=== PATIENT | male | born 1980 | race Caucasian/White ===

== ENCOUNTER 2025-07-12 03:20 | Emergency (ER) | payer SELFPAY ==
[~2025-07-12] VITALS: Ht 177.8 cm; Wt 90.7 kg
--- NOTE | 2025-07-12 03:33 | ERN ---
ED Note History of Present Illness Stated Complaint: SHORTNESS OF BREATH Chief Complaint: Shortness of Breath Time Seen by MD: 03:28 Dictation: This is a 44-year-old male who presented to the emergency room via EMS stating he was short of breath. Apparently patient has been drinking quite heavily for the past several days and he is homeless and he was hanging around a local hotel. Police department was called who basically informed the patient either to go to [facility] to [facility] up or to come to the hospital. Patient stated that he would rather come to the hospital and and when asked if he was short of breath, he stated yes No cough sputum or hemoptysis no fever chills or rigors. He stated that he smokes more than 2 packs per day of cigarettes, and methamphetamine. Patient denied being suicidal or having any serious depression. He just appeared drunk with a strong alcohol breath Temperature 98.1 pulse 80 respirations 20 blood pressure 138/95 with a pulse oximetry of 100% on room air Allergies: Coded Allergies: No Known Allergies (Unverified Allergy, Unknown, 07/12/25) Past Medical History Past Medical History: No Pertinent History Surgical History: None Social History: Smokers (2 packs of cigarettes daily), Drugs (Methamphetamine), ETOH RN Note Reviewed/Agreed w/PFSH: Yes Review of System Dictation Constitutional: Negative for fever,chills, and weight loss Eyes: Negative for injury, pain,redness, and discharge ENT: Negative for injury,pain or swelling Cardiovascular: Negative for chest pain, palpitations, and edema Respiratory: Positive for shortness of breath, mild cough, Abdomen/GI: Negative for abdominal pain, nausea, vomiting, diarrhea, and constipation Back: Negative for injury and pain : Negative for injury, bleeding and discharge MS/Extremity: Negative for injury and deformity Skin: Negative for rash, and discoloration Neuro: Negative for headache, weakness, numbness, tingling, and seizure Psych: Negative for suicide ideation, homicidal ideation, and hallucinations Initial Vital Sign VS Vital Signs Date Time Temp Pulse Resp B/P (MAP) Pulse Ox O2 Delivery O2 Flow Rate FiO2 07/12/25 03:23 98.1 80 20 138/95 100 Room Air 0 07/12/25 03:30 21 Physical Exam Dictation General: awake, alert, NAD overweight alcohol breath Head/Face: Normocephalic, atraumatic Eyes: PERRL, EOMI, vision at baseline ENT: oral cavity clear, TMs clear, no signs of infection Neck: Trachea midline, supple, no nuchal rigidity Cardiovascular: RRR, normal S1/S2, No MRGs, no JVD Respiratory: Prolonged expiratory phase, no respiratory distress, No rales or wheezes Abdomen: Soft, non-tender, non-distended, normal bowel sounds, no guarding or rebound. Skin: Warm, dry, normal turgor, no rash MS/Extremity: Pulses equal, no cyanosis, neurovascular intact, FROM Neuro: COAx4, GCS 15, strength 5/5, CN 2-12 intact, normal cerebellar exam, normal gait, Psych: Normal behavior, mood, and affect normal Extremities-trace edema without any palpable cords, Homans sign is negative Results (Laboratory/Radiology) Labs Reviewed?: Yes ED Course ED Course Orders Procedure Category Date Status Time Chest 1vw RAD 07/12/25 Resulted 03:37 Drug Screen Urine LAB 07/12/25 Logged 03:37 Ipratropium/Albuterol PHA 07/12/25 Complete Neb (Duoneb) 04:00 Methylprednisolone PHA 07/12/25 Complete Succ 40mg (Solu-Medro 04:00 Current Medications Medications (Trade) Dose Ordered Sig/Katrin Route PRN Reason Start Time Stop Time Status Last Admin Dose Admin Albuterol (DUOneb) 1 UDVIAL ONCE ONCE IH 07/12/25 04:00 07/12/25 04:10 DC 07/12/25 04:49 Methylprednisolone Sodium Succinate (Solu-medROL 40MG) 40 mg ONCE ONCE IM 07/12/25 04:00 07/12/25 04:10 DC 07/12/25 04:48 Vital Signs Date Time Temp Pulse Resp B/P (MAP) Pulse Ox O2 Delivery O2 Flow Rate FiO2 07/12/25 06:06 98.1 80 16 128/84 100 Room Air* 0 21 07/12/25 04:40 79 19 07/12/25 04:40 98.1 82 17 132/89 99 Room Air* 0 21 07/12/25 03:30 98.2 84 19 135/90 100 Room Air* 0 21 07/12/25 03:23 98.1 80 20 138/95 100 Room Air 0 Medical Decision Making MDM Differential diagnosis: COPD, aspiration, viral syndrome, chemical pneumonitis from recreational drugs This is a 44-year-old male who presented to the emergency room via EMS stating he was short of breath. Apparently patient has been drinking quite heavily for the past several days and he is homeless and he was hanging around a local hotel. Police department was called who basically informed the patient either to go to [facility] to [facility] up or to come to the hospital. Patient stated that he would rather come to the hospital and and when asked if he was short of breath, he stated yes No cough sputum or hemoptysis no fever chills or rigors. He stated that he smokes more than 2 packs per day of cigarettes, and methamphetamine Temperature 98.1 pulse 80 respirations 20 blood pressure 138/95 with a pulse oximetry of 100% on room air 4:20 a.m. chest x-ray shows some chronic changes with the elevated right hemidiaphragm no focal infiltrates. No pneumothorax pulmonary edema. Patient was basically sent to the emergency room to sober up before discharge. He was given breathing treatment Solu-Medrol. On multiple re-evaluations and at final re-evaluation at 6:45 a.m. temperature 98.1 pulse 80 respirations 16 blood pressure 128/84 with a pulse oximetry of 100% on room air Patient is alert awake answering questions appropriately not in any distress Admits to feeling better We will be discharging him to follow up with his primary care physician Rationale: Tests considered and ordered secondary to shared decision making include: Previous outside records reviewed: Old ER visits. Risk of complication and/or morbidity or mortality of patient management: None Medications-Per medication reconciliation Need for hospitalization: Patient does not meet criteria for hospitalization. Need for emergency major/minor surgery: No There are no social concerns with this patient. Prescription drug management Prescriptions will include symptomatic care Patient's prior external medical records from other ER visits were reviewed by me as indicated. Prior testing and results from previous visits were reviewed. Prior tests were taken into account with medical decision making and resource utilization, independent historian/historians were used to obtain complete medical history. I independently interpreted the test that were performed, results were reviewed by me and considered findings on radiology if ordered. Medical management and examination interpretation discussions were had by me with other qualified healthcare professionals as indicated for the patient's care. Problem List Problem List: (1) Alcohol intoxication (2) Methamphetamine abuse (3) Bronchitis, chemical DX & DISP Disposition: Discharge Departure Impression: Primary Impression: Alcohol intoxication Additional Impressions: Methamphetamine abuse, Bronchitis, chemical Condition: Stable Additional Instructions: Patient and the caregiver have been informed of all the diagnostic tests and the imaging conducted during the today's visit to the emergency room and has verbalized understanding of the results I have personally reviewed and interpreted all diagnostic exams performed here in the ER today as well as the vital signs documented by the nursing staff. The patient is now being discharged to home and should follow up with the primary care physician or the s pecialist as directed by the ER staff. Extensive counseling on smoking cessation alcohol abstinence was discussed. Patient was also educated on negative consequences and adverse effects of recreational drug abuse like methamphetamine and leading to multi organ failure and . TERRENCE LAGUERRE MD Jul 12, 2025 03:33
--- NOTE | 2025-07-12 03:40 | NUR ---
patient made aware that urine specimen is needed. patient not able to urinate at this time.
[2025-07-12 04:40] VITALS: PULSE 79; RESP 19
[2025-07-12] MEDS: Solu-medROL 40MG VIAL IM ONE (04:48)
--- NOTE | 2025-07-12 05:00 | NUR ---
patient still not able to urinate
--- NOTE | 2025-07-12 05:24 | HMCIMG ---
EXAM: CR Chest, 1 view CLINICAL HISTORY: Shortness of breath. COMPARISON: None provided. FINDINGS: The lungs show no infiltrates or other acute findings. No pleural effusion or pneumothorax. The cardiomediastinal silhouette is within normal limits. No acute osseous abnormality. IMPRESSION: No acute cardiopulmonary process is evident. /Witten
--- NOTE | 2025-07-12 06:41 | NUR ---
PATIENT REFUSES TO GIVE URINE SAMPLE, PATIENT REPORTS WANTING TO SLEEP
[2025-07-12 08:52] VITALS: BP 131/86; PULSE 75; RESP 18; TEMP 98.2; O2SAT 97
--- NOTE | 2025-07-12 08:53 | NUR ---
PT AMBULATING WITH OUT ASSISTANCE, FINISHED EATING BREAKFAST,NAD,WALKED OUT ER DISCHARGE DOOR.
== END 2025-07-12 08:55 | disposition home or self-care (01) ==
LOC: EDH 03:20
DX: F10.129 Alcohol abuse with intoxication, unspecified (principal); F15.10 Other stimulant abuse, uncomplicated; J40 Bronchitis, not specified as acute or chronic; F17.210 Nicotine dependence, cigarettes, uncomplicated; Y90.9 Presence of alcohol in blood, level not specified
CPT/HCPCS: 99283; 71045; 96372; 94640; J2919